=== PATIENT | female | born 1990 | race Two or more races ===

== ENCOUNTER 2023-03-27 12:43 | Emergency (ER) | payer OTHER ==
[~2023-03-27] VITALS: Ht 160 cm; Wt 65.8 kg
== END 2023-03-27 15:59 | disposition home or self-care (01) ==
LOC: ER 12:43
DX: L02.811 Cutaneous abscess of head [any part, except face] (principal)

== ENCOUNTER → 2024-05-14 | Emergency (ER) | payer OTHER ==
[~2024-05-14] VITALS: Ht 160 cm; Wt 71.7 kg
[~2024-05-14] MED LIST: BUTALB-ACETAMI1 EACH PO; BUTALB/ACETAMINOPHEN/CAFFEINE 1 TAB TABLET PO ONE
[2024-05-14 08:13] VITALS: BP 123/79; O2SAT 98
[2024-05-14 09:14] LABS: HEMATOCRIT 36.6 % (36.0-45.00); HEMOGLOBIN 12.9 g/dL (12.0-15.00); MEAN CELL VOLUME 88.5 fL (80.00-100.00); MEAN CORPUSCULAR HEMOGLOBIN 31.2 pg (27.00-32.0); MEAN CORPUSCULAR HGB CONC 35.2 g/dl (32.0-36.0); PLATELET COUNT 367 K/uL (150-450); RED BLOOD COUNT 4.13 M/uL (4.00-6.00)
[2024-05-14 09:43] LABS: ALBUMIN 3.7 gm/dL (3.4-5.0); ALKALINE PHOSPHATASE 64 U/L (50-136); ALT/SGPT 19 U/L (12-78); ANION GAP 9 (10.0-20.0); AST/SGOT 18 U/L (15-37); BILIRUBIN TOTAL 0.52 mg/dL (0.3-1.2); BLOOD UREA NITROGEN 7 mg/dL (7-18); BUN CREA RATIO 11 (7.0-25.0); CALCIUM 9.2 mg/dL (8.5-10.1); CARBON DIOXIDE 30 mEq/L (21-32); CHLORIDE 106 mmol/L (98-107); CREATININE SERUM 0.62 mg/dL (0.55-1.02); GFR 111.55; GLOBULINA 4.7 G/DL (2.4-3.5); GLUCOSE FASTING 106 mg/dL (65-100); OSMOLALITY SERUM 280 MOSM/KG (275-295); POTASSIUM 3.66 mEq/L (3.5-5.1); SODIUM 141 mmol/L (136-145); TOTAL PROTEIN 8.4 gm/dL (6.4-8.2)
[2024-05-14 11:02] LABS: HCG QUANTITATIVE < 1 mUI/mL (1-3)
== END | disposition home or self-care (01) ==
LOC: ER 08:04
PROVIDERS: General Practice
DX: R51.9 Headache, unspecified (principal)
CPT/HCPCS: 36415; 70460; 70491; Q9965

== ENCOUNTER 2024-08-01 10:59 | Emergency (ER) | payer OTHER ==
[~2024-08-01] VITALS: Ht 160 cm; Wt 74.8 kg
[~2024-08-01 10:59] MED LIST changes: -BUTALB/ACETAMINOPHEN/CAFFEINE 1 TAB TABLET PO ONE
[2024-08-01] MEDS ORDERED: ONDANSETRON HCL 2 MG/ML VIAL ONE (11:38)
[2024-08-01] MEDS ORDERED: FAMOTIDINE/PF 20 MG/2 ML VIAL ONE (11:38)
[2024-08-01] MEDS ORDERED: ONDANSETRON HCL 2 MG/ML VIAL IV ONE (11:45)
[2024-08-01] MEDS ORDERED: FAMOtidine 10 MG/ML (4ML VIAL) IV ONE (11:45)
[2024-08-01 12:49] LABS: HEMATOCRIT 35.8 % (36.0-45.00); HEMOGLOBIN 12.3 g/dL (12.0-15.00); MEAN CORPUSCULAR HGB CONC 34.4 g/dl (32.0-36.0); PLATELET COUNT 346 K/uL (150-450); RED BLOOD COUNT 3.98 M/uL (4.00-6.00)
[2024-08-01] MEDS ORDERED: PEPCID AC20 MG PO (13:20)
[2024-08-01] MEDS ORDERED: ZOFRAN8 MG PO (13:20)
== END 2024-08-01 13:24 | disposition home or self-care (01) ==
LOC: ER 11:01
PROVIDERS: General Practice
DX: K52.89 Other specified noninfective gastroenteritis and colitis (principal); Z20.822 Contact with and (suspected) exposure to COVID-19

== ENCOUNTER 2024-08-13 13:53 | Inpatient (IN) | payer OTHER ==
[~2024-08-13] VITALS: Ht 160 cm; Wt 75.7 kg
[~2024-08-13 13:53] MED LIST changes: +PEPCID AC20 MG PO; +ZOFRAN8 MG PO
--- NOTE | 2024-08-13 14:00 | NUR ---
PACIENTE ALERTA Y ORIENTADA X3 CON DX DE DIVERTICULOS LA CUAL REFIERE JORJE DOLOR EN ABDOMEN Y DIARREAS X4 EN EL JOSH DE HOY.
[2024-08-13] MEDS ORDERED: 0.9 % SODIUM CHLORIDE 1,000 ML IV STA (16:35)
[2024-08-13] MEDS ORDERED: HYOSCYAMINE SULFATE 0.125 MG TAB.SUBL ONE (16:39)
[2024-08-13] MEDS ORDERED: HYOSCYAMINE SULFATE 0.125 MG TAB.SUBL SL ONE (16:45)
--- NOTE | 2024-08-13 17:00 | NUR ---
PTE FEMENINA EVALUADA POR . SE ORIENTA SOBRE ORDENES DE [place] REFIERE COMPRENDER. SE COLECTAN MUESTRAS DE LABORATORIOS Y SE CANALIZA VENA BAJO MEDIDAS ASEPTICAS. SE ADMINISTRAN LIQUIDOS INTRAVENOSOS,JERALD ORDENADOS. SE ENTREGA ENVASE PARA COLCECCION DE EXCRETA Y SE ORIENTA.
[2024-08-13 17:20] LABS: HEMATOCRIT 35.1 % (36.0-45.00); MEAN CORPUSCULAR HEMOGLOBIN 30.1 pg (27.00-32.0); MEAN CORPUSCULAR HGB CONC 34.2 g/dl (32.0-36.0); PLATELET COUNT 344 K/uL (150-450); RED BLOOD COUNT 3.99 M/uL (4.00-6.00); RED CELL DISTRIBUTION WIDTH 13.1 % (11.5-14.5)
[2024-08-13 17:43] LABS: URINE APPEARANCE Clear; URINE BILIRRUBIN Negative (NEGATIVE); URINE BLOOD Negative; URINE COLOR Yellow; URINE GLUCOSE Negative (NEGATIVE); URINE KETONE Negative (NEGATIVE); URINE LEUKOCYTE Negative; URINE NITRATE Negative; URINE PROTEIN Negative (NEGATIVE)
[2024-08-13 17:48] LABS: INR 1.04; PROTHROMBIN TIME 11.3 SECONDS (9.0-11.5)
[2024-08-13 17:48] LABS: URINE BACTERIA 396.5 uL (0.0-1933); URINE RBC 17.2 uL (0.0-20.8); URINE WBC 9.3 uL (0.0-23.2)
[2024-08-13 17:53] LABS: CALCIUM 8.9 mg/dL (8.5-10.1); CREATININE SERUM 0.56 mg/dL (0.55-1.02); GFR 124.67; POTASSIUM 3.67 mEq/L (3.5-5.1)
[2024-08-13] MEDS ORDERED: METRONIDAZOLE/SODIUM CHLORIDE 500 MG/100 ML PIGGYBACK IV STA (20:13)
[2024-08-13] MEDS ORDERED: METRONIDAZOLE/SODIUM CHLORIDE 500 MG/100 ML PIGGYBACK IV ONE (20:32)
[2024-08-13] MEDS ORDERED: KETOROLAC TROMETHAMINE 15 MG VIAL IU ONE (22:15)
[2024-08-13] MEDS ORDERED: MORPHINE SULFATE 2 MG/ML CARTRIDGE IV SCH (22:15)
[2024-08-13] MEDS ORDERED: CIPROFLOXACIN IN 5 % DEXTROSE 200 ML IV SCH (22:16)
[2024-08-13] MEDS ORDERED: ONDANSETRON HCL 4 MG in 0.9 % SODIUM CHLORIDE 50 ML IV PRN (22:30)
[2024-08-13] MEDS ORDERED: ACETAMINOPHEN 500 MG GEL..CAP PO PRN (22:30)
[2024-08-13] MEDS ORDERED: 0.9 % SODIUM CHLORIDE 1,000 ML IV SCH (22:30)
[2024-08-13] MEDS ORDERED: KETOROLAC TROMETHAMINE 30 MG VIAL ONE (23:38)
[2024-08-14 00:18] LABS: INR 1.09; PARTIAL THROMBOPLASTIN TIME 34.5 SECONDS (22.0-34.0); PROTHROMBIN TIME 11.8 SECONDS (9.0-11.5)
[2024-08-14] MEDS ORDERED: METRONIDAZOLE/SODIUM CHLORIDE 100 ML IV SCH (01:00)
[2024-08-14 04:30] VITALS: BP 90/50; O2SAT 99
[2024-08-14 08:29] VITALS: BP 97/63
[2024-08-14] MEDS ORDERED: ENOXAPARIN SODIUM 40 MG/0.4 ML SYRINGE SUBCUTANEO SCH (09:00)
[2024-08-14] MEDS ORDERED: FAMOTIDINE/PF 20 MG in 0.9 % SODIUM CHLORIDE 8 ML IV PUSH SCH (09:00)
[2024-08-14] MEDS ORDERED: MORPHINE SULFATE 4 MG/ML CARTRIDGE IV PRN (13:00)
[2024-08-14 21:24] VITALS: BP 100/53; O2SAT 98
[2024-08-15 01:40] VITALS: BP 87/43
[2024-08-15 09:10] VITALS: BP 127/69
== END 2024-08-15 13:21 | disposition home or self-care (01) | DRG 392 ==
LOC: ER 13:55 → MEDJ 22:22
PROVIDERS: General Practice; ADMIT Student in an Organized Health Care Education/Training Program; ATTEND Student in an Organized Health Care Education/Training Program
PROC: BW21ZZZ Computerized Tomography (CT Scan) of Abdomen and Pelvis (ICD-10-PCS; principal; 2024-08-13)
DX: K57.32 Diverticulitis of large intestine without perforation or abscess without bleeding (principal)

== ENCOUNTER → 2025-03-31 | Emergency (ER) | payer OTHER ==
[~2025-03-31] VITALS: Ht 160 cm; Wt 75.7 kg
[~2025-03-31] MED LIST changes: +CIPROFLOXACIN IN 5 % DEXTROSE 400 MG/200 ML PIGGYBAG IV ONE; +KETOROLAC TROMETHAMINE 30 MG VIAL IV ONE; +METRONIDAZOLE/SODIUM CHLORIDE 500 MG/100 ML PIGGYBACK IV ONE
[2025-03-31 09:18] LABS: BASO % 0.4 % (0.1-1.2); EOS # 0.12 (0.04-0.54); EOS % 1.3 % (0.7-7.0); LYMPH # 1.96 (1.18-3.74); LYMPH % 22.0 % (19.3-53.1); MEAN PLATELET VOLUME 8.70 fl (9.4-12.4); MONO # 0.48 (0.24-0.82); MONO % 5.4 % (4.7-12.5); NEUT # 6.28 (1.56-6.13); NEUT % 70.8 % (34.0-71.1); RED CELL DISTRIBUTION WIDTH 12.2 % (11.6-14.4)
[2025-03-31 09:41] LABS: URINE APPEARANCE Clear; URINE BILIRRUBIN Negative (NEGATIVE); URINE BLOOD Moderate; URINE COLOR Yellow; URINE GLUCOSE Negative (NEGATIVE); URINE KETONE Trace (NEGATIVE); URINE LEUKOCYTE Negative; URINE NITRATE Negative; URINE PROTEIN Negative (NEGATIVE); URINE UROBILINOGEN 2.0 E.U./dl
[2025-03-31 09:45] LABS: URINE BACTERIA 263.9 uL (0.0-1933); URINE EPITHELIAL CELLS 10.4 uL (0.0-38.8); URINE RBC 11.7 uL (0.0-20.8); URINE WBC 33.3 uL (0.0-23.2)
[2025-03-31 09:56] LABS: URINE CAST 0.00 uL (0.0-1.40)
[2025-03-31 10:07] LABS: BUN CREA RATIO 17.0 (7.0-25.0); CREATININE SERUM 0.54 mg/dL (0.55-1.02); GFR 130.02; GLUCOSE FASTING 97.0 mg/dL (65-100); OSMOLALITY SERUM 282.0 MOSM/KG (275-295)
== END | disposition home or self-care (01) ==
LOC: ER 08:39
PROVIDERS: Emergency Medicine
DX: R10.9 Unspecified abdominal pain (principal); K57.32 Diverticulitis of large intestine without perforation or abscess without bleeding